=== PATIENT | female | born 1950 | race Caucasian/White ===

== ENCOUNTER → 2016-11-26 | Outpatient (CLI) | payer MEDICARE, BC | LOC: MC.RAD 10:38 | DX: Z12.31 Encounter for screening mammogram for malignant neoplasm of breast (principal) ==

== ENCOUNTER → 2018-04-13 | Outpatient (CLI) | payer MEDICARE, BC | LOC: MC.RAD 03-07 08:20 | DX: Z12.31 Encounter for screening mammogram for malignant neoplasm of breast (principal) ==

== ENCOUNTER → 2020-07-08 | Outpatient (CLI) | payer MEDICARE, BC | LOC: ZCOL.LAB 15:53 | DX: Z20.828 Contact with and (suspected) exposure to other viral communicable diseases (principal) ==

== ENCOUNTER → 2021-03-12 | Outpatient (CLI) | payer MEDICARE ==
[~2021-03-12] MED LIST: COLACE 100100 MG/CAP PO; COREG 25MG25 MG/TAB PO; ELIQUIS 5MG PO; FLEXERIL 1010 MG/TAB PO; HCTZ 25MG TAB25 MG PO; HCTZ12.5TAB PO; LIPITOR 40MG TA40 MG PO; NAPROSYN500 MG PO; NATURAL POTASS595 MG PO; NEURONTIN300 MG/CAP PO; NORCO 325 MG-51 TAB PO; OMEGA-3 1000 MG1 CAP PO; VERELAN240 MG PO; VITAMIN D31000 I1 PO; ZOCOR 40MG40 MG PO
== END ==
LOC: MC.RAD 13:56
DX: Z12.31 Encounter for screening mammogram for malignant neoplasm of breast (principal)

== ENCOUNTER 2021-08-31 10:48 | Emergency (ER) | payer MEDICARE ==
[~2021-08-31] VITALS: Ht 152.4 cm; Wt 63.6 kg
[2021-08-31 12:01] LABS: BASO % 0.5 % (0.0-2.0); EOS # 0.1 K/mm3 (0.0-0.7); EOS % 1.9 % (0-4.0); GRAN # 3.5 K/mm3 (1.4-6.5); GRAN % 61.8 % (42.2-75.2); HEMOGLOBIN 12.2 g/dl (12.5-16.0); LYMPH # 1.6 K/mm3 (1.2-3.4); LYMPH % 28.4 % (20.0-51.0); MEAN CELL VOLUME 92 fl (80.0-100.0); MEAN CORPUSCULAR HEMOGLOBIN 31 pg (27.0-31.0); MEAN CORPUSCULAR HGB CONC 34 g/dl (33.0-37.0); MEAN PLATELET VOLUME 9.2 fl (7.4-10.4); MONO # 0.4 K/mm3 (0.1-0.6); PLATELET COUNT 304 K/mm3 (130-400); RED BLOOD COUNT 3.89 M/mm3 (4.10-5.30); REDCELL DISTRIBUTION WIDTH-CV 13.4 % (11.5-14.5)
[2021-08-31 12:03] LABS: HEMATOCRIT 35.9 % (37.0-47.0)
[2021-08-31 12:28] LABS: ALBUMIN 3.6 gm/dL (3.4-4.8); BILIRUBIN,TOTAL 0.4 mg/dL (0.2-1.2); CALCIUM 9.4 mg/dL (8.4-10.2); CREATININE, serum 0.69 mg/dL (0.57-1.11); POTASSIUM 4.1 mmol/L (3.5-4.5); TOTAL PROTEIN 6.3 gm/dL (6.2-8.1)
[2021-08-31 12:45] VITALS: BP 148/64; PULSE 71; TEMP 98.5
[2021-09-01] MEDS ORDERED: NORCO 325 MG-51 TAB PO (21:05)
== END 2021-08-31 12:51 | disposition home or self-care (01) ==
LOC: COL.ER 10:48
PROVIDERS: Nurse Practitioner
DX: M79.605 Pain in left leg (principal)

== ENCOUNTER 2021-09-01 17:06 | Emergency (ER) | payer MEDICARE ==
[~2021-09-01] VITALS: Ht 154.9 cm; Wt 63.6 kg
[2021-09-01 18:09] VITALS: TEMP 98.2
[2021-09-01] MEDS ORDERED: NORCO 325 MG-51 TAB PO (21:05)
[2021-09-01 21:15] VITALS: BP 154/78; PULSE 76
== END 2021-09-01 21:15 | disposition home or self-care (01) ==
LOC: COL.ER 17:06
DX: M54.32 Sciatica, left side (principal); I10 Essential (primary) hypertension

== ENCOUNTER 2021-09-10 22:22 | Observation (INO) | payer MEDICARE ==
[~2021-09-10] VITALS: Ht 160 cm; Wt 72.0 kg
[~2021-09-10 22:22] MED LIST changes: -COLACE 100100 MG/CAP PO; -COREG 25MG25 MG/TAB PO; -ELIQUIS 5MG PO; -FLEXERIL 1010 MG/TAB PO; -HCTZ 25MG TAB25 MG PO; -HCTZ12.5TAB PO; -LIPITOR 40MG TA40 MG PO; -NAPROSYN500 MG PO; -NATURAL POTASS595 MG PO; -NEURONTIN300 MG/CAP PO; -OMEGA-3 1000 MG1 CAP PO; -VERELAN240 MG PO; -VITAMIN D31000 I1 PO; -ZOCOR 40MG40 MG PO
[2021-09-10 23:18] LABS: BASO % 0.4 % (0.0-2.0); EOS # 0.3 K/mm3 (0.0-0.7); EOS % 2.7 % (0-4.0); GRAN # 6.9 K/mm3 (1.4-6.5); GRAN % 70.4 % (42.2-75.2); HEMOGLOBIN 12.5 g/dl (12.5-16.0); LYMPH # 1.7 K/mm3 (1.2-3.4); LYMPH % 17.1 % (20.0-51.0); MEAN CELL VOLUME 92 fl (80.0-100.0); MEAN CORPUSCULAR HEMOGLOBIN 31 pg (27.0-31.0); MEAN CORPUSCULAR HGB CONC 34 g/dl (33.0-37.0); MEAN PLATELET VOLUME 9.6 fl (7.4-10.4); MONO # 0.9 K/mm3 (0.1-0.6); PLATELET COUNT 274 K/mm3 (130-400); RED BLOOD COUNT 3.99 M/mm3 (4.10-5.30); REDCELL DISTRIBUTION WIDTH-CV 13.3 % (11.5-14.5)
[2021-09-10 23:19] LABS: HEMATOCRIT 36.8 % (37.0-47.0)
[2021-09-10 23:29] LABS: INR 1.7 (0.8-3.0); PROTHROMBIN TIME 19.2 SECONDS (9.7-12.8)
[2021-09-10 23:35] LABS: ALANINE AMINOTRANSFERASE 11 U/L (0-55); ALBUMIN 4.1 gm/dL (3.4-4.8); ALCOHOL(ethanol),MEDICAL < 10 mg/dL (0-10); ALKALINE PHOSPHATASE 88 U/L (40-150); ANION GAP 15 mmol/L (7-16); AST,SGOT 16 U/L (5-34); BILIRUBIN,TOTAL 0.9 mg/dL (0.2-1.2); BLOOD UREA NITROGEN 13 mg/dL (10-20); CALCIUM 9.7 mg/dL (8.4-10.2); CARBON DIOXIDE 21 mmol/L (23-31); CHLORIDE 104 mmol/L (98-107); CREATININE, serum 0.76 mg/dL (0.57-1.11); GLUCOSE 99 mg/dL (70-99); POTASSIUM 3.1 mmol/L (3.5-4.5); SODIUM 140 mmol/L (136-145); TOTAL PROTEIN 7.5 gm/dL (6.2-8.1)
[2021-09-10 23:42] LABS: TROPONIN-I < 0.010 ng/mL (0.00-0.033)
[2021-09-11 00:45] LABS: PH 6 (5-8); SQUAMOUS EPITHELIAL None Seen /hpf (0-10); URINE APPEARANCE Hazy (CLEAR/HAZY); URINE BACTERIA None Seen (NONE SEEN); URINE BILIRUBIN Negative (NEGATIVE); URINE BLOOD 1+ (NEGATIVE); URINE COLOR Straw (YELLOW); URINE GLUCOSE Negative (NEGATIVE); URINE KETONE Trace (NEGATIVE); URINE LEUKOCYTE ESTERASE 1+ (NEGATIVE); URINE NITRATE Positive (NEGATIVE); URINE PROTEIN(semi-quant) Negative (NEGATIVE); URINE RBC 0-2 /hpf (0-2); URINE UROBILINOGEN Negative (NEGATIVE)
[2021-09-11 00:54] LABS: COLLECTION METHOD CLEAN CATCH
[2021-09-11] MEDS ORDERED: ZOCOR 40MG40 MG PO (02:17)
[2021-09-11] MEDS ORDERED: NEURONTIN300 MG/CAP PO (02:17)
[2021-09-11] MEDS ORDERED: COREG 25MG25 MG/TAB PO ×2 (02:19)
[2021-09-11] MEDS ORDERED: HCTZ 25MG TAB25 MG PO (02:19)
[2021-09-11] MEDS ORDERED: COLACE 100100 MG/CAP PO ×2 (02:20)
[2021-09-11] MEDS ORDERED: NAPROSYN500 MG PO (02:20)
[2021-09-11] MEDS ORDERED: VERELAN240 MG PO (02:21)
[2021-09-11] MEDS ORDERED: VITAMIN D31000 I1 PO (02:21)
[2021-09-11] MEDS ORDERED: NATURAL POTASS595 MG PO (02:22)
[2021-09-11] MEDS ORDERED: OMEGA-3 1000 MG1 CAP PO (02:22)
[2021-09-11 04:37] LABS: MAGNESIUM 1.8 mg/dL (1.6-2.6); PHOSPHOROUS 4.1 mg/dL (2.3-4.7)
[2021-09-11 05:03] LABS: STREP SCREEN NEGATIVE
--- NOTE | 2021-09-11 07:00 | NUR ---
Report received from LORAINE Leggett. PT in bed resting, eyes closed, prabhjot ontinue to monitor.
[2021-09-11 07:18] LABS: CALCIUM 9.4 mg/dL (8.4-10.2); CREATININE, serum 0.59 mg/dL (0.57-1.11); POTASSIUM 3.8 mmol/L (3.5-4.5)
[2021-09-11 07:44] VITALS: BP 123/65; PULSE 84; TEMP 97.9
--- NOTE | 2021-09-11 09:22 | NUR ---
Assessment charted. Pt in bed resting, able to get self up to side of bed, alert and oriented, appears comfortable but states pain in low back is 7/10. resting quietly, IVF to LH. Denies needs,will contnue to jeffrey.
[2021-09-11 12:30] VITALS: BP 114/76; PULSE 114; TEMP 97.4
[2021-09-11 12:31] VITALS: BP 124/67; PULSE 86; TEMP 97.9
--- NOTE | 2021-09-11 14:51 | NUR ---
Other nurse on the floor and TRAVELIFT OPERATOR reported pt was tearful and c/o boys and little girl in her room that looked burnt. Upon entry pt was tearful and paranoid that we were trying to confuse her or change her location. Tried to calmly explaiin everything and pt agreeable but remains confused and tearful, notified Poell and order received for agitation medications. Will keep bed alarm on and continue to monitor.
[2021-09-11 16:30] VITALS: BP 142/78; PULSE 93; TEMP 98.4
--- NOTE | 2021-09-11 16:41 | NUR ---
Called pts son and daughter to give update and allow pt to talk to them, pt remains fearful and paranoid of our care, trying to give space to the pt but they continue to start wandering in hallways and have to redirect.
[2021-09-11] MEDS ORDERED: ELIQUIS 5MG PO (16:57)
[2021-09-11] MEDS ORDERED: FLEXERIL 1010 MG/TAB PO (16:58)
--- NOTE | 2021-09-11 18:37 | NUR ---
Pt remains confused, paranoid and has set off bed alarm a few times. Approval received from Yen, Flowers Salesperson for sister to come spend the night. Will give report to nightshift nurse who will resume care.
[2021-09-11 20:03] VITALS: BP 123/83; PULSE 99; TEMP 99.1
--- NOTE | 2021-09-11 21:30 | NUR ---
Patient is calm now resting in bed, VSS, Tele was removed by patient, refusing. Sister was with her but considered it was not necessary to stay since she looks to be sleeping. She decided to go. Assessment completed, meds provided. No further needs at this time. Bed alarm on. Call light within reach.
[2021-09-11 23:30] VITALS: BP 133/86; PULSE 102; TEMP 99.1
[2021-09-12 03:33] VITALS: BP 137/86; PULSE 86; TEMP 98
--- NOTE | 2021-09-12 06:31 | NUR ---
Patient has had a calm night, she was able to sleep in periods. Accepted to put in place again the Tele box. She answers questions and follows comands. Not slured speech. Shipt report will be given to day RN.
--- NOTE | 2021-09-12 07:00 | NUR ---
Report received from LORAINE Nichole. Pt i bed restign with eyes closed, will continue to monitor.
[2021-09-12 07:14] LABS: BASO % 0.4 % (0.0-2.0); EOS # 0.2 K/mm3 (0.0-0.7); EOS % 3.8 % (0-4.0); GRAN # 2.3 K/mm3 (1.4-6.5); GRAN % 50.2 % (42.2-75.2); LYMPH # 1.5 K/mm3 (1.2-3.4); LYMPH % 32.5 % (20.0-51.0); MEAN CELL VOLUME 96 fl (80.0-100.0); MEAN CORPUSCULAR HEMOGLOBIN 31 pg (27.0-31.0); MEAN CORPUSCULAR HGB CONC 32 g/dl (33.0-37.0); MEAN PLATELET VOLUME 10.2 fl (7.4-10.4); MONO # 0.6 K/mm3 (0.1-0.6); MONO % 12.9 % (1.7-9.3); PLATELET COUNT 245 K/mm3 (130-400); RED BLOOD COUNT 3.57 M/mm3 (4.10-5.30); REDCELL DISTRIBUTION WIDTH-CV 13.3 % (11.5-14.5)
[2021-09-12 07:21] LABS: HEMATOCRIT 34.3 % (37.0-47.0)
[2021-09-12 07:33] LABS: C-REACTIVE PROTEIN 5.37 mg/dL (0.00-0.50); POTASSIUM 3.7 mmol/L (3.5-4.5)
[2021-09-12 07:35] LABS: MAGNESIUM 1.8 mg/dL (1.6-2.6)
[2021-09-12 08:48] VITALS: BP 149/83; PULSE 87; TEMP 98.1
--- NOTE | 2021-09-12 09:17 | NUR ---
Assessment charted. Pt in bed resting, denies needs, alert ad mostly oriented. when asked location did say high school initially but when corrected did agree she is in the hospital in [place]. Much more agreeable, does not appear to be delusional, hallucinating, or disoriented today. Resting in bed, agreeable to be NPO until MRIs completed. Will continue to monior. INT to RAC and LW.
--- NOTE | 2021-09-12 11:58 | NUR ---
putty worker met with patient to discuss discharge plan. Patient reports that she lives at home alone in [place]. Patient states that she is independent with her activities of daily living and that she does not utilize any DME to assist with mobility. Patient reports to having access to a cane and a walker at home should she ever need it. Patient does not have any oxygen needs at home. PCP is and she utilizes [facility] for perscriptions with no cost difficulty. Patient does not have a DPOA-HC completed but reports that she is already in the process of establishing one assigning her daughter Rosalind as her agent. Patient reports that she still drives and is open to having OP PT set up with [facility] patient [facility]. Discharge plan: Home with OP PT
[2021-09-12 12:00] VITALS: BP 120/80; PULSE 84; TEMP 98
[2021-09-12 15:18] VITALS: BP 119/75; PULSE 93; TEMP 97.9
--- NOTE | 2021-09-12 18:14 | NUR ---
Pt has done well today, rested most of the day, did not set off alarm often and was tearful only once over shift. Able to be more oriented most of day and did well with tests completed. When working with ST in room did report one hallucination but otherwise denies any with me. Will give report to nightshift nurse who will resume care.
[2021-09-12 20:22] VITALS: BP 151/100; PULSE 103; TEMP 98.3
--- NOTE | 2021-09-12 22:00 | NUR ---
Patient is resting in bed, alert and oriented, VSS, denies pain, nausea or vomiting. Cough medication provided. IV in the left hand removed, cath bended already out of site. Patient indicates she does not remember how she got to the hospital and what has been happening since then. Tele in place. No further needs at this time. Call light within reach.
--- NOTE | 2021-09-12 23:49 | NUR ---
Patient seems to be confused about why she is in the hospital, why her sister came yesterday to stay with her, and in general why she has been disoriented. She states will contact her ux engineer to check what happened in her stay in the hospital. Patient was oriented about how she came to the hospital and the reasons why her family brought her. Along the talk she mentioned that something came from the window and dropped in the bed, but nothing was in there. Patient is calm in the room but hesitant about what is going on with her health. She thinks she came because of her left pain.
[2021-09-13] VITALS (7 sets, daily range): BP systolic 114–139; BP diastolic 54–98; PULSE 53–101; TEMP 97.5–98.3
--- NOTE | 2021-09-13 06:10 | NUR ---
Pt has had an calm night. She has been able to rest most of the night. All needs met. Report will be given to dayshift RN.
[2021-09-13 06:39] LABS: BASO % 0.2 % (0.0-2.0); EOS # 0.2 K/mm3 (0.0-0.7); EOS % 4.6 % (0-4.0); GRAN # 2.5 K/mm3 (1.4-6.5); HEMOGLOBIN 11.5 g/dl (12.5-16.0); LYMPH # 1.7 K/mm3 (1.2-3.4); MEAN CELL VOLUME 95 fl (80.0-100.0); MEAN CORPUSCULAR HEMOGLOBIN 31 pg (27.0-31.0); MEAN CORPUSCULAR HGB CONC 32 g/dl (33.0-37.0); MEAN PLATELET VOLUME 9.7 fl (7.4-10.4); MONO # 0.6 K/mm3 (0.1-0.6); PLATELET COUNT 265 K/mm3 (130-400); RED BLOOD COUNT 3.75 M/mm3 (4.10-5.30); REDCELL DISTRIBUTION WIDTH-CV 13.2 % (11.5-14.5)
[2021-09-13 06:47] LABS: HEMATOCRIT 35.5 % (37.0-47.0)
[2021-09-13 07:01] LABS: CALCIUM 9.9 mg/dL (8.4-10.2); CREATININE, serum 0.61 mg/dL (0.57-1.11); POTASSIUM 3.7 mmol/L (3.5-4.5)
--- NOTE | 2021-09-13 11:30 | NUR ---
Plan [facility]. SW with patient about care, patient is agreeable to the care support with Nursing.
--- NOTE | 2021-09-13 11:36 | NUR ---
Referral sent to [facility], [facility], and [facility].
--- NOTE | 2021-09-13 14:05 | NUR ---
Pt. progressing w/ plan of care. Pt. was tearful earlier this AM but reassurance provided. Pt. feeling better this afternoon. Pt. denies pain and reports needs have been met. Stroke scale orders d/c'd w/ ARI Burton.
--- NOTE | 2021-09-13 20:25 | NUR ---
Patient is in bed, alert but partially oriented, VSS, Denies pain, nausea or vomiting. Pt does not know where she is going from a hospital in [place] to a hotel. Oriented. Assessment completed, medications provided. No further needs at this time. Call light within reach.
[2021-09-14 06:41] VITALS: BP 136/70; PULSE 67; TEMP 98
--- NOTE | 2021-09-14 06:55 | NUR ---
Patient has had a calm night, has been stable. All needs met. Shift report given do day RN.
[2021-09-14 06:58] LABS: BASO % 0.4 % (0.0-2.0); EOS # 0.3 K/mm3 (0.0-0.7); EOS % 4.5 % (0-4.0); GRAN # 3.1 K/mm3 (1.4-6.5); GRAN % 55.4 % (42.2-75.2); HEMOGLOBIN 12.2 g/dl (12.5-16.0); LYMPH # 1.5 K/mm3 (1.2-3.4); LYMPH % 27.6 % (20.0-51.0); MEAN CELL VOLUME 94 fl (80.0-100.0); MEAN CORPUSCULAR HEMOGLOBIN 31 pg (27.0-31.0); MEAN CORPUSCULAR HGB CONC 34 g/dl (33.0-37.0); MEAN PLATELET VOLUME 9.9 fl (7.4-10.4); MONO # 0.7 K/mm3 (0.1-0.6); MONO % 11.7 % (1.7-9.3); PLATELET COUNT 279 K/mm3 (130-400); RED BLOOD COUNT 3.89 M/mm3 (4.10-5.30); REDCELL DISTRIBUTION WIDTH-CV 13.2 % (11.5-14.5)
[2021-09-14 07:05] LABS: HEMATOCRIT 36.4 % (37.0-47.0)
[2021-09-14 07:12] VITALS: BP 128/80; PULSE 81; TEMP 98.5
[2021-09-14 07:17] LABS: CALCIUM 10.1 mg/dL (8.4-10.2); CREATININE, serum 0.62 mg/dL (0.57-1.11); POTASSIUM 3.9 mmol/L (3.5-4.5)
[2021-09-14 10:51] VITALS: BP 144/87; PULSE 92; TEMP 99.2
--- NOTE | 2021-09-14 11:28 | NUR ---
House nurse called to check on status of patient for placement. SW reviewed previous SW note stating outpatient PT with [facility] written, electronic document states referrals sent to [facility], [facility] and [facility]. SW will contiue to follow.
[2021-09-14 15:36] VITALS: BP 133/88; PULSE 78; TEMP 99
--- NOTE | 2021-09-14 16:53 | NUR ---
SW resent referrals to [facility], [facility], [facility]. SW will continue to follow.
[2021-09-14 19:39] VITALS: BP 143/96; PULSE 95; TEMP 97.6
[2021-09-14 23:52] VITALS: BP 124/72; PULSE 84; TEMP 97.9
[2021-09-15 04:05] VITALS: BP 120/80; PULSE 82; TEMP 98.1
--- NOTE | 2021-09-15 07:00 | NUR ---
Report received from LORAINE Leggett. Pt in bed resting, in shower, denies needs, will continue to monitor.
[2021-09-15 08:08] VITALS: BP 134/86; PULSE 86; TEMP 98.1
--- NOTE | 2021-09-15 11:00 | NUR ---
Assessmetn charted. Pt in bed resting, does not remember or wednesday here. Was able to answer all orientation questions besides day of week. Denies pain. Denies other needs, INT to RA/C. Will continue to monitor.
[2021-09-15 11:02] VITALS: BP 159/97; PULSE 94
[2021-09-15] MEDS ORDERED: LIPITOR 40MG TA40 MG PO (11:17)
[2021-09-15] MEDS ORDERED: HCTZ12.5TAB PO (11:23)
--- NOTE | 2021-09-15 15:57 | NUR ---
Pt discharged at this time. Pt received discharge packet, f/u appointmetns reviewed, new scripts, meds returned from pharmacy. Pt denies needs, escorted downstairs with all bleongings, son at bedside to review discharge. INT dc'd, tip intact, criteria met.
--- NOTE | 2021-09-15 16:17 | NUR ---
Shraddha, at [facility], reports that they have declined the patient; due to being too high functional and they do not feel like they can skill her. The patient is walking 475 feet and PT recommends home and to consider outpatient therapy or home health. The hospitalist is ready to discharge the patient and recommend home health. ST had concerns about her safety at home. CHRISTOPHER staffed with ST. ST plans to work with the patient and then update SW about the eval. SW met the patient to review discharge plan. The patient states that she is ready to get home and would be agreeable to home health. CHRISTOPHER presented and read the IM form outloud to the patient. The patient verbalized understanding and signed the form. CHRISTOPHER provided her with a copy. After the eval, notified CHRISTOPHER the patient has a moderate cognitive deficit. She would recommend that the patient does not drive alone or use a stove. recommends that home health ST eval the patient and determine if safe in the home. CHRISTOPHER then contacted the patient's son, Saleem, and updated him on the above. Saleem reports that he lives near the patient. He states that he works during the day, but that him and his sister check in on the patient. Saleem is agreeable to the plan of home health. CHRISTOPHER reviewed Medicare.gov's list of home health agencies that serve [place]. Saleem was agreeable to using [facility]. CHRISTOPHER contacted and faxed a referral to Flor at [facility]. Flor reports that they are able to accept the patient for services. CHRISTOPHER also educated the patient's son on private duty services and assisted living. Saleem verbalized understanding. CHRISTOPHER provided Saleem with a list of private duty agencies. He had no other questions or concerns for CHRISTOPHER. The patient discharged back home today, 09/15, with home health services for group home/PT/OT/ST from [facility]. CHRISTOPHER notified and faxed discharge orders to Flor at [facility]. No additional needs at this time.
== END 2021-09-15 16:01 | disposition home or self-care (01) ==
LOC: COL.ER 22:22 → MEDICAL 09-11 02:42
PROVIDERS: Emergency Medicine; Nurse Practitioner Family; Physician Assistant; Psychiatry & Neurology Neurology; ADMIT Internal Medicine
DX: R47.81 Slurred speech (principal); R29.810 Facial weakness; I10 Essential (primary) hypertension; N39.0 Urinary tract infection, site not specified; I48.91 Unspecified atrial fibrillation; M48.07 Spinal stenosis, lumbosacral region; J02.9 Acute pharyngitis, unspecified; Z20.822 Contact with and (suspected) exposure to COVID-19; Z86.16 Personal history of COVID-19; E27.8 Other specified disorders of adrenal gland; E78.5 Hyperlipidemia, unspecified; D25.9 Leiomyoma of uterus, unspecified; E87.6 Hypokalemia; G62.9 Polyneuropathy, unspecified; E87.2 Acidosis; Z79.899 Other long term (current) drug therapy; Z79.01 Long term (current) use of anticoagulants; Z86.73 Personal history of transient ischemic attack (TIA), and cerebral infarction without residual deficits
CPT/HCPCS: OP; 99223-AI; 99231-AI; 99232-AI; 99239; A9585; G0378; J0696; J7030; Q9967

== ENCOUNTER → 2021-09-29 | Outpatient (CLI) | payer MEDICARE ==
[~2021-09-29] MED LIST changes: +COLACE 100100 MG/CAP PO; +COREG 25MG25 MG/TAB PO; +ELIQUIS 5MG PO; +FLEXERIL 1010 MG/TAB PO; +HCTZ 25MG TAB25 MG PO; +HCTZ12.5TAB PO; +LIPITOR 40MG TA40 MG PO; +NAPROSYN500 MG PO; +NATURAL POTASS595 MG PO; +NEURONTIN300 MG/CAP PO; +OMEGA-3 1000 MG1 CAP PO; +VERELAN240 MG PO; +VITAMIN D31000 I1 PO; +ZOCOR 40MG40 MG PO
== END ==
LOC: COL.RAD 11:23
DX: E27.8 Other specified disorders of adrenal gland (principal)
CPT/HCPCS: Q9967

== ENCOUNTER 2021-10-22 10:26 | Day surgery (SDC) | payer MEDICARE ==
[~2021-10-22] VITALS: Ht 160 cm; Wt 70.4 kg
[2021-10-22] VITALS (12 sets, daily range): BP systolic 115–158; BP diastolic 68–94; PULSE 62–76; TEMP 98
[2021-10-22 11:11] LABS: HEMATOCRIT 37.2 % (37.0-47.0); HEMOGLOBIN 12.5 g/dl (12.5-16.0); MEAN CELL VOLUME 92 fl (80.0-100.0); MEAN CORPUSCULAR HEMOGLOBIN 31 pg (27-31); MEAN CORPUSCULAR HGB CONC 34 g/dl (33.0-37.0); MEAN PLATELET VOLUME 9.7 fl (7.4-10.4); PLATELET COUNT 252 K/mm3 (130-400); RED BLOOD COUNT 4.03 M/mm3 (4.10-5.30)
[2021-10-22 11:18] LABS: INR 1.1 (0.8-3.0); PROTHROMBIN TIME 12.4 SECONDS (9.7-12.8)
[2021-10-22 11:20] LABS: PARTIAL THROMBOPLASTIN TIME 37.1 SECONDS (26.0-37.0)
[2021-10-22 11:27] LABS: ALBUMIN 3.9 gm/dL (3.4-4.8); BILIRUBIN,TOTAL 0.7 mg/dL (0.2-1.2); CALCIUM 8.8 mg/dL (8.4-10.2); CREATININE, serum 0.7 mg/dL (0.57-1.11); POTASSIUM 3.7 mmol/L (3.5-4.5); TOTAL PROTEIN 6.9 gm/dL (6.2-8.1)
--- NOTE | 2021-10-22 11:31 | NUR ---
SEE MERGE FOR ALL MEDICATION ADMINISTRATION TIMES/DOSAGES AND INTRA/POST PROCEDURE SEDATION ASSESSMENTS. PRE PROCEDURE ASSESSMENT COMPLETED IN [facility].
[2021-10-22] MEDS ORDERED: LUTEIN20 M1 PO (11:53)
[2021-10-22] MEDS ORDERED: PHARMASSURE ZIN50 MG PO (11:53)
[2021-10-22] MEDS ORDERED: GINKGO2 PO (11:53)
[2021-10-22] MEDS ORDERED: NORVASC 5MG5 MG/TAB PO (11:54)
[2021-10-22] MEDS ORDERED: LIPITOR 80MG80 MG PO (11:55)
[2021-10-22] MEDS ORDERED: ASPIRIN E.C. 8181 MG PO (15:55)
[2021-10-22] MEDS ORDERED: NITROSTAT0.4 MG/TAB SL (15:56)
--- NOTE | 2021-10-22 17:05 | NUR ---
I reviewed dc/rx and fu instructions wiht pt and her daughter. Both verbalize understanding. TR band was deflated with no problem. site dressed with bandaid, folded 2x2 and coban. cms remains intact distal. no evidence of bleeding. PT is steady on her feet in her room, no dizziness if she moves slowly like she normally does. IV dc'd with cath intact, dressing applied. Pt to exit via wheelchair.
[2021-11-06] MEDS ORDERED: NAPROSYN500 MG PO (20:39)
[2021-11-07] MEDS ORDERED: OMNICEF 300MG300 MG PO (16:01)
== END 2021-10-22 17:05 | disposition home or self-care (01) ==
LOC: COL.CAR 10:26
PROVIDERS: Internal Medicine Cardiovascular Disease
DX: R94.39 Abnormal result of other cardiovascular function study (principal); I48.0 Paroxysmal atrial fibrillation; I10 Essential (primary) hypertension; I44.30 Unspecified atrioventricular block; R73.9 Hyperglycemia, unspecified; R42 Dizziness and giddiness; R53.83 Other fatigue; R00.2 Palpitations; E88.81 Metabolic syndrome and other insulin resistance; E66.9 Obesity, unspecified; E03.9 Hypothyroidism, unspecified; E78.5 Hyperlipidemia, unspecified; E72.51 Non-ketotic hyperglycinemia; E78.2 Mixed hyperlipidemia; K59.00 Constipation, unspecified; M81.0 Age-related osteoporosis without current pathological fracture; Z86.73 Personal history of transient ischemic attack (TIA), and cerebral infarction without residual deficits; Z79.891 Long term (current) use of opiate analgesic; Z79.899 Other long term (current) drug therapy; Z68.31 Body mass index [BMI] 31.0-31.9, adult; Z79.01 Long term (current) use of anticoagulants
CPT/HCPCS: C1769; J1644; J2250; J3010; Q9967

== ENCOUNTER → 2022-01-02 | Outpatient (CLI) | payer MEDICARE ==
[~2022-01-02] MED LIST changes: +ASPIRIN E.C. 8181 MG PO; +GINKGO2 PO; +LIPITOR 80MG80 MG PO; +LUTEIN20 M1 PO; +NITROSTAT0.4 MG/TAB SL; +NORVASC 5MG5 MG/TAB PO; +OMNICEF 300MG300 MG PO; +PHARMASSURE ZIN50 MG PO
== END ==
LOC: COL.RAD 12-30 15:00
DX: D35.02 Benign neoplasm of left adrenal gland (principal); F03.91 Unspecified dementia, unspecified severity, with behavioral disturbance
CPT/HCPCS: Q9967

== ENCOUNTER 2022-08-06 12:49 | Emergency (ER) | payer MEDICARE ==
[~2022-08-06] VITALS: Ht 157.5 cm; Wt 71.4 kg
[2022-08-06 13:12] VITALS: TEMP 98.1
[2022-08-06 14:01] LABS: BASO % 0.4 % (0.0-2.0); EOS # 0.3 K/mm3 (0.0-0.7); EOS % 3.7 % (0.0-4.0); GRAN # 4.8 K/mm3 (1.4-6.5); GRAN % 62.6 % (42.2-75.2); HEMATOCRIT 30.1 % (37.0-47.0); LYMPH # 1.7 K/mm3 (1.2-3.4); LYMPH % 21.9 % (20.0-51.0); MEAN CELL VOLUME 91 fl (80.0-100.0); MEAN CORPUSCULAR HEMOGLOBIN 30 pg (27-31); MEAN CORPUSCULAR HGB CONC 33 g/dl (33.0-37.0); MEAN PLATELET VOLUME 9.9 fl (7.4-10.4); MONO # 0.8 K/mm3 (0.1-0.6); MONO % 11.1 % (1.7-9.3); PLATELET COUNT 293 K/mm3 (130-400); RED BLOOD COUNT 3.32 M/mm3 (4.10-5.30); REDCELL DISTRIBUTION WIDTH-CV 14.3 % (11.5-14.5)
[2022-08-06 14:07] LABS: ALBUMIN 3.2 gm/dL (3.4-4.8); BILIRUBIN,TOTAL 0.4 mg/dL (0.2-1.2); CALCIUM 8.7 mg/dL (8.4-10.2); CREATININE, serum 0.72 mg/dL (0.57-1.11); POTASSIUM 4.2 mmol/L (3.5-4.5); TOTAL PROTEIN 6.8 gm/dL (6.2-8.1)
[2022-08-06 14:18] LABS: TROPONIN-I 3.67 ng/mL (0.00-0.033)
[2022-08-06 16:27] VITALS: BP 117/76; PULSE 62
== END 2022-08-06 16:27 | disposition home or self-care (01) ==
LOC: COL.ER 12:49
PROVIDERS: Personal Emergency Response Attendant
DX: R77.8 Other specified abnormalities of plasma proteins (principal); M79.602 Pain in left arm; Z86.16 Personal history of COVID-19; Z28.311 Partially vaccinated for COVID-19

== ENCOUNTER 2022-08-12 17:13 | Inpatient (IN) | payer MEDICARE ==
[~2022-08-12] VITALS: Ht 162.6 cm; Wt 70.4 kg
[2022-08-12 17:57] LABS: BASO % 0.4 % (0.0-2.0); EOS # 0.1 K/mm3 (0.0-0.7); EOS % 1.5 % (0.0-4.0); GRAN # 5.2 K/mm3 (1.4-6.5); GRAN % 77.2 % (42.2-75.2); HEMOGLOBIN 10.7 g/dl (12.5-16.0); LYMPH # 0.9 K/mm3 (1.2-3.4); LYMPH % 13.8 % (20.0-51.0); MEAN CELL VOLUME 88 fl (80.0-100.0); MEAN CORPUSCULAR HEMOGLOBIN 30 pg (27-31); MEAN CORPUSCULAR HGB CONC 34 g/dl (33.0-37.0); MONO # 0.5 K/mm3 (0.1-0.6); PLATELET COUNT 386 K/mm3 (130-400); RED BLOOD COUNT 3.63 M/mm3 (4.10-5.30); REDCELL DISTRIBUTION WIDTH-CV 13.6 % (11.5-14.5)
[2022-08-12 17:59] LABS: HEMATOCRIT 31.8 % (37.0-47.0)
[2022-08-12 18:17] LABS: ALBUMIN 3.4 gm/dL (3.4-4.8); BILIRUBIN,TOTAL 0.5 mg/dL (0.2-1.2); C-REACTIVE PROTEIN 0.4 mg/dL (0.00-0.50); CALCIUM 8.7 mg/dL (8.4-10.2); CREATININE, serum 0.74 mg/dL (0.57-1.11); POTASSIUM 3.7 mmol/L (3.5-4.5)
[2022-08-12 18:24] LABS: TROPONIN-I 0.325 ng/mL (0.00-0.033)
[2022-08-12 20:05] VITALS: BP 146/72; PULSE 60; TEMP 98
[2022-08-12] MEDS ORDERED: PACERONE200 MG PO (21:14)
[2022-08-12] MEDS ORDERED: COREG 6.256.25 MG/TA PO (21:15)
[2022-08-12] MEDS ORDERED: PLAVIX 75MG TAB75 MG PO (21:15)
[2022-08-12] MEDS ORDERED: NEURONTIN300 MG/CAP PO (21:16)
[2022-08-12] MEDS ORDERED: ZETIA 10MG TAB10 MG PO (21:16)
[2022-08-12] MEDS ORDERED: NAMENDA 10MG TA10 MG PO (21:17)
[2022-08-12] MEDS ORDERED: SEROQUEL 2525 MG/TAB PO (21:18)
[2022-08-12] MEDS ORDERED: LIPITOR 80MG80 MG PO (21:19)
[2022-08-12] MEDS ORDERED: XARELTO20 MG PO (21:19)
[2022-08-12] MEDS ORDERED: ARICEPT10 MG PO (21:19)
[2022-08-12] MEDS ORDERED: [UNRECOGNIZED DRUG - OTHER] PO (21:20)
[2022-08-12] MEDS ORDERED: EPA FISH OIL1 SGL PO (21:20)
[2022-08-12] MEDS ORDERED: LUTEIN20 M1 PO (21:21)
[2022-08-12] MEDS ORDERED: VITAMINC1000TA PO (21:21)
[2022-08-12] MEDS ORDERED: COLACE 100100 MG/CAP PO (21:21)
[2022-08-12] MEDS ORDERED: PHARMASSURE ZIN50 MG PO (21:22)
[2022-08-12 23:50] VITALS: BP 115/63; PULSE 68; TEMP 98.1
[2022-08-13] VITALS (8 sets, daily range): BP systolic 123–168; BP diastolic 69–87; PULSE 59–79; TEMP 97.8–99.1
[2022-08-13 06:54] LABS: MEAN CELL VOLUME 91 fl (80.0-100.0); MEAN CORPUSCULAR HEMOGLOBIN 29 pg (27-31); MEAN CORPUSCULAR HGB CONC 32 g/dl (33.0-37.0); MEAN PLATELET VOLUME 9.5 fl (7.4-10.4); PLATELET COUNT 376 K/mm3 (130-400); RED BLOOD COUNT 3.41 M/mm3 (4.10-5.30); REDCELL DISTRIBUTION WIDTH-CV 13.7 % (11.5-14.5)
[2022-08-13 06:56] LABS: HEMATOCRIT 31.1 % (37.0-47.0)
[2022-08-13 07:05] LABS: THYROID STIMULATING HORMONE 1.668 uIU/mL (0.350-4.940)
[2022-08-13 07:07] LABS: ALBUMIN 3.2 gm/dL (3.4-4.8); BILIRUBIN,TOTAL 0.5 mg/dL (0.2-1.2); CALCIUM 8.4 mg/dL (8.4-10.2); CHOLESTEROL RISK RATIO 2.6; CREATININE, serum 0.69 mg/dL (0.57-1.11); POTASSIUM 3.8 mmol/L (3.5-4.5); TROPONIN-I 0.251 ng/mL (0.00-0.033)
--- NOTE | 2022-08-13 09:28 | NUR ---
Initial visit; Patient thanked Apparatus Lineman for looking in on her and offering God's blessings. Patient was receptive to Apparatus Lineman keeping her in her prayers.
--- NOTE | 2022-08-13 09:28 | NUR ---
PT RESTING IN BED. MORNING MEDICATIONS HELD DUE TO NPO STATUS. SHIFT ASSESSMENT COMPLETED. PT DENIES ANY PAIN OR SOB. IV ZOFRAN GIVEN PER eMAR, PT COMPLAINING ON NAUSEA AND DRY HEAVING, BELIEVES IT IS BECAUSE SHE HAS NOT EATEN THIS AM. CALL LIGHT WITHIN REACH. CONTINUING TO MONITOR.
--- NOTE | 2022-08-13 09:39 | NUR ---
Dental Office Coordinator met with patient to discuss discharge planning. Patient lives in [place] and sees Dr. Vinson for primary care. Patient obtains medications from [facility] with no difficulties and does not use any DME. Patient is independent with ADLS and plans to return home at time of discharge. Patient does not have Advance Directives and is not interested in completing DPOA-HC form at this time. Discharge Plan: Home
[2022-08-14] VITALS (8 sets, daily range): BP systolic 122–141; BP diastolic 60–76; PULSE 64–74; TEMP 98–99
--- NOTE | 2022-08-14 08:00 | NUR ---
Pt sitting in chair with breakfast on bedside table. Morning medications administered. Shift assessment completed. Telemetry on. Rhonchi heard upon auscultation of upper lobes; O2 sat at 95% on room air. Pt denies any NV. Pt denies having any SOB or CP at this time. 1/2 NS infusing at 75mL/hr in R hand intact; no edema or redness. No further requests at this time. Call light within reach. Family member at the bedside at this time.
--- NOTE | 2022-08-14 10:09 | NUR ---
RE:CARDIAC REHAB. Staff touched base with patient today - pt reports she has not been referred for cardiac rehab (recent stents x3 07/30/22). Discussed cardiac rehab process and risk factors for heart disease. Patient is interested in attending in [place]. Staff will follow up with patient after discharge to schedule. Patient and family member verbalize understanding. Approx 10 min spent with patient.
--- NOTE | 2022-08-14 14:56 | NUR ---
Crop Puller had attempted to contact patient's daughter, Rosalind yesterday and left a message. SW met with patient and daughter, Rosalind this morning at bedside and Rosalind did not receive message until this morning. SW reviewed discharge plan and PT recommendation for Home Health. SW provided Medicare.gov list of HH agencies. SW then rounded with clinical team and patient and daughter do not feel patient can return home at this time and want to look into SNF. SW advised that she will submit for auth, but with PT recommending HH, it may be denied. CHRISTOPHER faxed clinicals to [facility] and confirmed they were received. SW also faxed referral to [facility] and [facility]. Discharge Plan: Possibly SNF, if insurance accepts
--- NOTE | 2022-08-14 17:57 | NUR ---
Pt laying in bed. Pt had minor emesis per STANLEY Bender. Pt requested PRN Zofran; administered by LORAINE Dietrich. / NS infusing @ 75mL/hr in R hand intact. No further requests at this time. Call light within reach. Family member remains at the bedside.
[2022-08-15 04:29] VITALS: BP 123/67; PULSE 75; TEMP 98.6
[2022-08-15 06:23] LABS: BASO % 0.2 % (0.0-2.0); EOS % 0.3 % (0.0-4.0); GRAN # 7.2 K/mm3 (1.4-6.5); GRAN % 77.2 % (42.2-75.2); LYMPH # 1.5 K/mm3 (1.2-3.4); LYMPH % 16.5 % (20.0-51.0); MEAN CELL VOLUME 95 fl (80.0-100.0); MEAN CORPUSCULAR HGB CONC 31 g/dl (33.0-37.0); MEAN PLATELET VOLUME 9.3 fl (7.4-10.4); MONO # 0.5 K/mm3 (0.1-0.6); MONO % 5.5 % (1.7-9.3); PLATELET COUNT 350 K/mm3 (130-400); RED BLOOD COUNT 3.18 M/mm3 (4.10-5.30); REDCELL DISTRIBUTION WIDTH-CV 13.7 % (11.5-14.5)
[2022-08-15 06:30] LABS: HEMATOCRIT 30.3 % (37.0-47.0); HEMOGLOBIN 9.4 g/dl (12.5-16.0); MEAN CORPUSCULAR HEMOGLOBIN 30 pg (27-31)
[2022-08-15 06:42] LABS: CALCIUM 8.5 mg/dL (8.4-10.2); CREATININE, serum 0.73 mg/dL (0.57-1.11); MAGNESIUM 1.9 mg/dL (1.6-2.6); POTASSIUM 3.5 mmol/L (3.5-4.5)
[2022-08-15 07:09] VITALS: BP 135/77; PULSE 62; TEMP 98.3
--- NOTE | 2022-08-15 07:21 | NUR ---
Patient sitting up in bed sleeping, easily awakened with verbal command. A&Ox3. VSS. IV CDI, fluids infusing. Cotton ball in LF ear, patient states that "it helps with the pain" doctor aware. Denies nausea. Call light within reach.
--- NOTE | 2022-08-15 09:37 | NUR ---
CHRISTOPHER called [facility] at 9:32 am for follow up. [facility] auth approved through 08/18 for [facility]. [facility] Ref # [id number] Auth # [id number]: [id number] Fax number: [phone]
[2022-08-15 12:08] VITALS: BP 133/66; PULSE 68; TEMP 98
--- NOTE | 2022-08-15 12:20 | NUR ---
Transcribing Operators Supervisor rounds: Patient was receiving two visitors so no roving winder visit completed.
[2022-08-15 16:01] VITALS: BP 120/65; PULSE 76; TEMP 98.2
--- NOTE | 2022-08-15 17:59 | NUR ---
Patient had a more productive day. Had complaints of nausea in the am, but after giving nausea medication, patient did not report nausea in the pm. Patient ambulated in the hallway with PT and tolerated well. Ambulated to the bathroom and recliner without difficulty. Tolerated PO intake and was able to stay more awake during the day. Patient does not report pain in left ear or nausea. A&Ox3. VSS. IV CDI, fluids infusing. 2 loose BM's. No further needs expressed. Call light within reach. Bed alarm on
--- NOTE | 2022-08-15 18:45 | NUR ---
REPORT RCVD FROM LORAINE MULLEN. THE PATIENT IS LAYING IN BED WITH DAUGHTER AT BEDSIDE, DENIES ANY NAUSEA, OR PAIN. THE PATIENT STATES THAT SHE IS DOING REALLY WELL. WILL RETURN TO CHECK IN ON PATIENT FOR EVENING MEDICATIONS AND ASSESSMENT.
[2022-08-15 21:00] VITALS: BP 127/71; PULSE 71; TEMP 98.5
[2022-08-16] VITALS (7 sets, daily range): BP systolic 109–125; BP diastolic 60–71; PULSE 62–71; TEMP 97.6–98.9
[2022-08-16 06:41] LABS: BASO % 0.4 % (0.0-2.0); EOS # 0.1 K/mm3 (0.0-0.7); EOS % 0.8 % (0.0-4.0); GRAN # 4.6 K/mm3 (1.4-6.5); GRAN % 63.9 % (42.2-75.2); LYMPH # 1.8 K/mm3 (1.2-3.4); LYMPH % 25.8 % (20.0-51.0); MEAN CORPUSCULAR HGB CONC 33 g/dl (33.0-37.0); MEAN PLATELET VOLUME 9.5 fl (7.4-10.4); MONO # 0.6 K/mm3 (0.1-0.6); MONO % 8.7 % (1.7-9.3); PLATELET COUNT 327 K/mm3 (130-400); RED BLOOD COUNT 3.15 M/mm3 (4.10-5.30); REDCELL DISTRIBUTION WIDTH-CV 13.8 % (11.5-14.5)
[2022-08-16 06:48] LABS: HEMOGLOBIN 9.2 g/dl (12.5-16.0); MEAN CELL VOLUME 89 fl (80.0-100.0); MEAN CORPUSCULAR HEMOGLOBIN 29 pg (27-31)
[2022-08-16 06:50] LABS: CALCIUM 8.3 mg/dL (8.4-10.2); CREATININE, serum 0.73 mg/dL (0.57-1.11)
--- NOTE | 2022-08-16 12:00 | NUR ---
Pt laying in bed. Shift assessment completed. Telemetry on. LCTA. INT in L forearm intact; no edema or redness. Fall precautions remain in place. No further requests at this time. Call light within reach.
[2022-08-17 04:02] VITALS: BP 142/72; PULSE 66; TEMP 98.1
[2022-08-17 07:05] LABS: CALCIUM 8.4 mg/dL (8.4-10.2); CREATININE, serum 0.73 mg/dL (0.57-1.11); POTASSIUM 3.9 mmol/L (3.5-4.5)
[2022-08-17 07:12] LABS: BASO % 0.3 % (0.0-2.0); EOS # 0.4 K/mm3 (0.0-0.7); EOS % 4.2 % (0.0-4.0); GRAN # 6.2 K/mm3 (1.4-6.5); GRAN % 70.2 % (42.2-75.2); LYMPH # 1.5 K/mm3 (1.2-3.4); LYMPH % 16.7 % (20.0-51.0); MEAN CELL VOLUME 89 fl (80.0-100.0); MEAN CORPUSCULAR HGB CONC 32 g/dl (33.0-37.0); MEAN PLATELET VOLUME 9.6 fl (7.4-10.4); MONO # 0.7 K/mm3 (0.1-0.6); MONO % 8.3 % (1.7-9.3); PLATELET COUNT 346 K/mm3 (130-400); RED BLOOD COUNT 3.31 M/mm3 (4.10-5.30); REDCELL DISTRIBUTION WIDTH-CV 13.6 % (11.5-14.5)
[2022-08-17 07:14] LABS: HEMATOCRIT 29.6 % (37.0-47.0); HEMOGLOBIN 9.5 g/dl (12.5-16.0); MEAN CORPUSCULAR HEMOGLOBIN 29 pg (27-31)
[2022-08-17] MEDS ORDERED: IMDUR 30MG30 MG/TAB PO (07:16)
[2022-08-17 07:19] VITALS: BP 122/73; PULSE 64; TEMP 98.4
--- NOTE | 2022-08-17 08:00 | NUR ---
Pt awake and laying in bed. Morning medications administered per eMAR. Shift assessment completed. Telemetry on. INT on L forearm intact; no edema or redness. Gauze remains in L ear as pt complains of discomfort if L ear is open to air. Fall precautions remain in place. Call light within reach.
[2022-08-17 11:25] VITALS: BP 141/68; PULSE 65; TEMP 97.7
[2022-08-17 15:33] VITALS: BP 145/71; PULSE 74; TEMP 98
--- NOTE | 2022-08-17 16:06 | NUR ---
Store Clerk faxed clinical updates to [facility] and notifed him that authorization was approved for SNF. Julio advised even with auth, they would not look at taking until tomorrow, when patient has her third inpatient midnight. Later in the afternoon, [facility] contacted CHRISTOPHER and advised they decline patient. CHRISTOPHER faxed updates to Shraddha at [facility]. CHRISTOPHER also gave referral to Kelly at [facility].
[2022-08-17 19:13] VITALS: BP 137/69; PULSE 69; TEMP 98.3
[2022-08-17 23:51] VITALS: BP 143/67; PULSE 78; TEMP 98.4
[2022-08-18 03:09] VITALS: BP 148/80; PULSE 66; TEMP 98.2
[2022-08-18 07:30] VITALS: BP 125/77; PULSE 68; TEMP 98.6
--- NOTE | 2022-08-18 07:50 | NUR ---
Pt awake and laying in bed. Morning medications administered per eMAR. Shift assessment completed. Telemetry remains on. LCTA. No complaints of SOB or CP at this time. Pt denies having any NV at this time. INT in L forearm infiltrated; Josephine notified and no need for access at this time. Fall precautions remain in place. Call light within reach.
[2022-08-18 12:05] VITALS: BP 135/72; PULSE 66; TEMP 98.1
--- NOTE | 2022-08-18 12:28 | NUR ---
Provided pt discharge instructions at this time. All questions answered. Pt waiting for daughters arrival at this time. Call light within reach.
--- NOTE | 2022-08-18 13:29 | NUR ---
Waxing Machine Operator Helper followed with [facility] and [facility], both have declined patient. All three facilities ([facility], [facility], and [facility]) provided feedback that they felt patient would be denied for SNF by her insurance, despite prior authorization. SW contacted [facility] and they may not have a bed available today. Other local facilities ([place], [place], [place], [place]) do not contract with [facility]. CHRISTOPHER met with patient and had daughter, Rosalind on speaker phone. SW provided the above update and advised that we were unable to secure rehab placement. Patient and Rosalind expressed frustration with insurance coverage, however verbalized understanding and are agreeable to discharge home [facility] services. Patient became tearful and stated she was happy to go home and see her pets today. Patient has a walker and wheelchair available at home. Rosalind to meat pickler patient later this afternoon. Patient stated she has used [facility] in the past and wants to use them again. CHRISTOPHER contacted Juan at [facility] and faxed referral with discharge orders. Discharge Plan: Home with [facility]
--- NOTE | 2022-08-18 14:32 | NUR ---
Pt escorted out of facility by STANLEY Bender via wheelchair. Pt is accompanied by daughter at this time.
== END 2022-08-18 14:30 | disposition home health service (06) | DRG 313 ==
LOC: COL.ER 17:13 → MEDICAL 18:53
PROVIDERS: Nurse Practitioner; Physician Assistant; Student in an Organized Health Care Education/Training Program; ADMIT Internal Medicine
DX: R07.89 Other chest pain (principal); I48.91 Unspecified atrial fibrillation; I25.10 Atherosclerotic heart disease of native coronary artery without angina pectoris; I10 Essential (primary) hypertension; R00.1 Bradycardia, unspecified; G62.9 Polyneuropathy, unspecified; H92.02 Otalgia, left ear; F03.A0 Unspecified dementia, mild, without behavioral disturbance, psychotic disturbance, mood disturbance, and anxiety; E78.5 Hyperlipidemia, unspecified; E88.81 Metabolic syndrome and other insulin resistance; E66.9 Obesity, unspecified; Z68.25 Body mass index [BMI] 25.0-25.9, adult; K59.00 Constipation, unspecified; R79.89 Other specified abnormal findings of blood chemistry; Z79.01 Long term (current) use of anticoagulants; Z95.818 Presence of other cardiac implants and grafts; Z95.5 Presence of coronary angioplasty implant and graft
CPT/HCPCS: OP; G0378; J2270; J2405; J3480; Q9967

== ENCOUNTER 2022-11-11 11:39 | Outpatient (RCR) | payer MEDICARE ==
[~2022-11-11 11:39] MED LIST changes: +ARICEPT10 MG PO; +COREG 6.256.25 MG/TA PO; +EPA FISH OIL1 SGL PO; +IMDUR 30MG30 MG/TAB PO; +NAMENDA 10MG TA10 MG PO; +PACERONE200 MG PO; +PLAVIX 75MG TAB75 MG PO; +SEROQUEL 2525 MG/TAB PO; +VITAMINC1000TA PO; +XARELTO20 MG PO; +ZETIA 10MG TAB10 MG PO; +[UNRECOGNIZED DRUG - OTHER] PO
== END 2022-11-17 | disposition home or self-care (01) ==
LOC: COL.CR
DX: Z48.812 Encounter for surgical aftercare following surgery on the circulatory system (principal); Z95.5 Presence of coronary angioplasty implant and graft; I25.119 Atherosclerotic heart disease of native coronary artery with unspecified angina pectoris

== ENCOUNTER 2022-12-14 11:34 | Outpatient (RCR) | payer MEDICARE | END 2022-12-15 | disposition home or self-care (01) | LOC: COL.CR | DX: Z48.812 Encounter for surgical aftercare following surgery on the circulatory system (principal); Z95.5 Presence of coronary angioplasty implant and graft; I25.119 Atherosclerotic heart disease of native coronary artery with unspecified angina pectoris ==

== ENCOUNTER 2023-01-13 15:07 | Outpatient (RCR) | payer MEDICARE | END 2023-01-15 | disposition home or self-care (01) | LOC: COL.CR | DX: Z48.812 Encounter for surgical aftercare following surgery on the circulatory system (principal); Z95.5 Presence of coronary angioplasty implant and graft; I25.119 Atherosclerotic heart disease of native coronary artery with unspecified angina pectoris ==